=== PATIENT | male | born 1965 | race Two or more races ===

== ENCOUNTER 2016-11-16 11:23 | Inpatient (IN) | payer SELFPAY ==
[~2016-11-16] VITALS: Ht 162.6 cm; Wt 58.1 kg
[2016-11-16] MEDS ORDERED: SODIUM CHLORIDE 0.9% 1,000 ML IV ONE (14:51)
[2016-11-16] MEDS ORDERED: SODIUM CHLORIDE FLUSH 10ML SYR IVF ONE (15:00)
[2016-11-16] MEDS ORDERED: SODIUM CHLORIDE 0.9% 1,000ML IVBOLUS ONE (15:00)
[2016-11-16] MEDS ORDERED: FAMOTIDINE 20 MG/2 ML ONE ×2 (15:18→16:05)
[2016-11-16 15:28] LABS: BLOOD UREA NITROGEN 95 mg/dL (7-18)
[2016-11-16] MEDS ORDERED: FAMOTIDINE 20 MG/2 ML IVPush ONE (15:30)
[2016-11-16 15:31] LABS: ASPARTATE AMINO TRANSFERASE 21 U/L (15-37); IS PT STATUS REG ER OR PRE ER? YES
[2016-11-16] MEDS ORDERED: AZITHROMYCIN 500 MG in SODIUM CHLORIDE 0.9% 250 ML IV ONE (16:30)
[2016-11-16] MEDS ORDERED: CEFTRIAXONE PMX 1GM/50ML 50 ML IVPB ONE (16:30)
[2016-11-16] MEDS ORDERED: CEFTRIAXONE PMX 1GM/50ML 50 ML ONE (16:36)
[2016-11-16] MEDS: AZITHROMYCIN 500 MG in SODIUM CHLORIDE 0.9% 250 ML IV SCH (18:48)
[2016-11-16] MEDS ORDERED: BISACODYL 10 MG SUPP PR PRN (19:00)
[2016-11-16] MEDS ORDERED: ONDANSETRON 2MG/ML, 2ML IVPush PRN (19:00)
[2016-11-16] MEDS ORDERED: ACETAMINOPHEN 325 MG TABLET PO PRN (19:00)
[2016-11-16] MEDS ORDERED: LABETALOL 5MG/ML, 20ML IVPush PRN (19:00)
[2016-11-16] MEDS ORDERED: hydrALAzine 20 MG/ML, 1ML IVPush PRN (19:00)
[2016-11-16] MEDS ORDERED: POLYETHYLENE GLYCOL 17 GM PACKET PO PRN (19:00)
[2016-11-16] MEDS ORDERED: TEMAZEPAM 15 MG CAPSULE PO PRN (19:00)
[2016-11-16] MEDS ORDERED: morphine SULFATE 10 MG/ML, 1ML IVPush PRN (19:00)
[2016-11-16 19:11] LABS: POTASSIUM,URINE RANDOM 13 mmol/L
[2016-11-16] MEDS: CEFTRIAXONE PMX 1GM/50ML 50 ML IV SCH (19:46)
[2016-11-16] MEDS: SODIUM CHLORIDE 0.9% 1,000 ML IV SCH (19:47)
[2016-11-16] MEDS ORDERED: HEPARIN 5,000 UNITS/ML, 1ML ONE (20:21)
[2016-11-16] MEDS: HEPARIN 5,000 UNITS/ML, 1ML SQ SCH (22:14)
[2016-11-16 22:41] VITALS: BP 124/74
[2016-11-16] MEDS: GUAIFENESIN 200 MG TABLET PO SCH (23:45)
[2016-11-17 02:00] VITALS: BP 115/66
[2016-11-17] MEDS: SODIUM CHLORIDE 0.9% 1,000 ML IV SCH ×2 (02:22→20:33)
[2016-11-17] MEDS: HEPARIN 5,000 UNITS/ML, 1ML SQ SCH ×3 (02:23→23:29)
[2016-11-17 06:05] LABS: ASPARTATE AMINO TRANSFERASE 18 U/L (15-37); BLOOD UREA NITROGEN 83 mg/dL (7-18); TOTAL IRON BINDING CAPACITY 198 mcg/dL (250-450)
[2016-11-17 08:00] VITALS: BP 107/68
[2016-11-17] MEDS: CEFTRIAXONE PMX 1GM/50ML 50 ML IV SCH ×2 (08:31→23:32)
[2016-11-17] MEDS ORDERED: PHARMACY MAY ADJ FOR RENAL FX MC PRN (09:30)
[2016-11-17] MEDS: SENNA/DOCUSATE TABLET PO SCH (10:54)
[2016-11-17] MEDS: GUAIFENESIN 200 MG TABLET PO SCH ×2 (10:54→23:29)
[2016-11-17 12:18] LABS: HIV-1 p24 ANTIGEN Nonreactive (Nonreactive)
[2016-11-17 12:19] LABS: HIV 1/2 Ab/Ag DISCLAIMER *** Please Note ***; HIV-1/2 Ab/Ag COMBO COMMENT *** Comment ***
[2016-11-17 12:20] LABS: HIV 1&2 ANTIBODY SCREEN Preliminary Positive (Nonreactive)
[2016-11-17 13:14] VITALS: BP 104/68
[2016-11-17 14:37] LABS: HIV 1&2 ANTIBODY SCREEN REPEAT Preliminary Positive (Nonreactive); HIV 1/2 Ab/Ag DISCLAIMER *** Please Note ***; HIV-1 p24 ANTIGEN REPEAT Nonreactive (Nonreactive)
[2016-11-17 14:41] LABS: HIV-1/2 Ab/Ag COMBO COM REPEAT *** Comment ***
[2016-11-17 20:31] VITALS: BP 111/73
[2016-11-17] MEDS: AZITHROMYCIN 500 MG in SODIUM CHLORIDE 0.9% 250 ML IV SCH (20:34)
[2016-11-18 02:50] VITALS: BP 114/74
[2016-11-18 05:24] LABS: ASPARTATE AMINO TRANSFERASE 20 U/L (15-37); BLOOD UREA NITROGEN 63 mg/dL (7-18)
[2016-11-18 06:24] LABS: DIFF TOTAL CELLS COUNTED 100 CELL DIFF
[2016-11-18 06:28] LABS: VERIFY COUNTS? YES
[2016-11-18 06:29] LABS: ANISOCYTOSIS 1+; HYPOCHROMIA 1+; OVALOCYTES 1+
[2016-11-18 07:05] VITALS: BP 118/76
[2016-11-18] MEDS: GUAIFENESIN 200 MG TABLET PO SCH ×2 (07:55→20:47)
[2016-11-18] MEDS: CEFTRIAXONE PMX 1GM/50ML 50 ML IV SCH ×2 (07:55→22:28)
[2016-11-18] MEDS: HEPARIN 5,000 UNITS/ML, 1ML SQ SCH ×2 (07:55→16:23)
[2016-11-18] MEDS: SENNA/DOCUSATE TABLET PO SCH (07:56)
[2016-11-18] MEDS: SODIUM BICARBONATE 650 MG TABLET PO SCH ×2 (12:53→20:47)
[2016-11-18 15:24] VITALS: BP 114/75
[2016-11-18] MEDS: FERROUS SULFATE 325 MG TABLET PO SCH (16:23)
[2016-11-18 20:48] VITALS: BP 120/79
[2016-11-18] MEDS: AZITHROMYCIN 500 MG in SODIUM CHLORIDE 0.9% 250 ML IV SCH (22:29)
[2016-11-19 01:25] VITALS: BP 112/75
[2016-11-19] MEDS: HEPARIN 5,000 UNITS/ML, 1ML SQ SCH ×3 (01:59→17:18)
[2016-11-19 05:58] LABS: BLOOD UREA NITROGEN 41 mg/dL (7-18)
[2016-11-19] MEDS ORDERED: SODIUM CHLORIDE INHALATION 7%, 4 ML NPPB ONE (06:00)
[2016-11-19 06:01] LABS: ASPARTATE AMINO TRANSFERASE 21 U/L (15-37)
[2016-11-19 07:07] LABS: TOXOPLASMA GONDII IGG 16.7 IU/mL (0.0-7.1); TOXOPLASMA GONDII IGM <3.0 AU/mL (0.0-7.9)
[2016-11-19 08:36] VITALS: BP 123/80
[2016-11-19] MEDS: SENNA/DOCUSATE TABLET PO SCH (09:00)
[2016-11-19] MEDS: GUAIFENESIN 200 MG TABLET PO SCH ×3 (10:02→22:28)
[2016-11-19] MEDS: FERROUS SULFATE 325 MG TABLET PO SCH ×2 (10:02→17:18)
[2016-11-19] MEDS: SODIUM BICARBONATE 650 MG TABLET PO SCH ×2 (10:02→22:17)
[2016-11-19] MEDS: CEFTRIAXONE PMX 1GM/50ML 50 ML IV SCH ×2 (11:08→22:18)
[2016-11-19 14:59] VITALS: BP 103/58
[2016-11-19] MEDS: AZITHROMYCIN 500 MG in SODIUM CHLORIDE 0.9% 250 ML IV SCH (18:46)
[2016-11-19 22:06] VITALS: BP 108/61
[2016-11-20] MEDS: HEPARIN 5,000 UNITS/ML, 1ML SQ SCH ×3 (00:30→16:30)
[2016-11-20 02:19] VITALS: BP 129/79
[2016-11-20 05:24] LABS: BLOOD UREA NITROGEN 25 mg/dL (7-18)
[2016-11-20 05:28] LABS: ASPARTATE AMINO TRANSFERASE 20 U/L (15-37)
[2016-11-20 06:32] LABS: DIFF TOTAL CELLS COUNTED 100 CELL DIFF
[2016-11-20 06:37] LABS: VERIFY COUNTS? YES
[2016-11-20 06:38] LABS: ANISOCYTOSIS 1+
[2016-11-20 06:39] LABS: LARGE PLATELETS 1+; OVALOCYTES 1+
[2016-11-20 09:00] VITALS: BP 129/73
[2016-11-20] MEDS: FERROUS SULFATE 325 MG TABLET PO SCH ×2 (10:26→16:37)
[2016-11-20] MEDS: CEFTRIAXONE PMX 1GM/50ML 50 ML IV SCH ×2 (10:26→22:33)
[2016-11-20] MEDS: GUAIFENESIN 200 MG TABLET PO SCH ×2 (10:26→22:33)
[2016-11-20] MEDS: SENNA/DOCUSATE TABLET PO SCH (10:26)
[2016-11-20 14:33] VITALS: BP 101/65
[2016-11-20] MEDS: AZITHROMYCIN 500 MG in SODIUM CHLORIDE 0.9% 250 ML IV SCH (18:39)
[2016-11-20 22:35] VITALS: BP 111/74
[2016-11-21] MEDS: HEPARIN 5,000 UNITS/ML, 1ML SQ SCH ×3 (02:24→17:50)
[2016-11-21 02:25] VITALS: BP 105/66
[2016-11-21] MEDS: OXYcodone IR 5MG TABLET PO PRN (03:48)
[2016-11-21 05:13] LABS: BLOOD UREA NITROGEN 20 mg/dL (7-18)
[2016-11-21 05:17] LABS: ASPARTATE AMINO TRANSFERASE 28 U/L (15-37)
[2016-11-21 08:40] VITALS: BP 102/67
[2016-11-21] MEDS: FERROUS SULFATE 325 MG TABLET PO SCH ×2 (08:50→17:49)
[2016-11-21] MEDS: GUAIFENESIN 200 MG TABLET PO SCH ×2 (08:51→20:04)
[2016-11-21] MEDS: CEFTRIAXONE PMX 1GM/50ML 50 ML IV SCH ×2 (08:51→20:03)
[2016-11-21] MEDS: SENNA/DOCUSATE TABLET PO SCH (08:56)
[2016-11-21 12:22] VITALS: BP 130/86
[2016-11-21 15:18] LABS: ABSOLUTE CD 4 HELPER 55 /uL (359-1519); HEMATOCRIT 24.8 % (37.5-51.0); HEMOGLOBIN 7.6 g/dL (12.6-17.7); IMMATURE GRANULOCYTES 1 % (.); MCH 26.8 pg (26.6-33.0); MCHC 30.6 g/dL (31.5-35.7); MCV 87 fL (79-97); MONOCYTES 13 % (.); NEUTROPHILS 60 % (.); PLATELETS 260 x10E3/uL (150-379); RBC 2.84 x10E6/uL (4.14-5.80); RDW 17.2 % (12.3-15.4); WBC 2.7 x10E3/uL (3.4-10.8)
[2016-11-21 19:16] VITALS: BP 131/85
[2016-11-22 01:04] VITALS: BP 97/63
[2016-11-22] MEDS: HEPARIN 5,000 UNITS/ML, 1ML SQ SCH ×3 (05:08→22:06)
[2016-11-22 07:47] VITALS: BP 98/70
[2016-11-22] MEDS: SENNA/DOCUSATE TABLET PO SCH (09:00)
[2016-11-22 09:06] LABS: LOG10 HIV-1 RNA 6.029 (.)
[2016-11-22 09:20] LABS: BLOOD UREA NITROGEN 17 mg/dL (7-18)
[2016-11-22 09:23] LABS: ASPARTATE AMINO TRANSFERASE 39 U/L (15-37)
[2016-11-22] MEDS: CEFTRIAXONE PMX 1GM/50ML 50 ML IV SCH (09:23)
[2016-11-22] MEDS: CHOLECALCIFEROL 1,000 UNIT TABLET PO SCH (10:10)
[2016-11-22] MEDS: GUAIFENESIN 200 MG TABLET PO SCH ×2 (10:10→22:06)
[2016-11-22] MEDS: FERROUS SULFATE 325 MG TABLET PO SCH ×2 (10:10→18:21)
[2016-11-22] MEDS: SULFAMETH./TRIMETHOPRIM DS 800MG/160MG TABLET PO SCH (10:11)
[2016-11-22] MEDS: FLUCONAZOLE 200 MG TABLET PO SCH (10:11)
[2016-11-22] MEDS: CEFTAZIDIME PMX 2 GM/50ML 50 ML IV SCH ×2 (10:11→22:06)
[2016-11-22] MEDS: OXYcodone IR 5MG TABLET PO PRN (12:02)
[2016-11-22 13:52] VITALS: BP 108/71
[2016-11-22] MEDS ORDERED: AZIT250T89 PO (17:54)
[2016-11-22] MEDS ORDERED: SULF1TAB3 PO (17:54)
[2016-11-22 18:34] VITALS: BP 130/86
[2016-11-23 04:52] VITALS: BP 127/61
[2016-11-23 05:45] LABS: ASPARTATE AMINO TRANSFERASE 32 U/L (15-37); BLOOD UREA NITROGEN 16 mg/dL (7-18)
[2016-11-23] MEDS: HEPARIN 5,000 UNITS/ML, 1ML SQ SCH ×3 (05:56→22:12)
[2016-11-23 08:00] VITALS: BP 117/84
[2016-11-23] MEDS: FERROUS SULFATE 325 MG TABLET PO SCH ×2 (08:42→16:49)
[2016-11-23] MEDS: FLUCONAZOLE 200 MG TABLET PO SCH (08:43)
[2016-11-23] MEDS: SULFAMETH./TRIMETHOPRIM DS 800MG/160MG TABLET PO SCH (08:43)
[2016-11-23] MEDS: CHOLECALCIFEROL 1,000 UNIT TABLET PO SCH (08:43)
[2016-11-23] MEDS: SENNA/DOCUSATE TABLET PO SCH (08:43)
[2016-11-23] MEDS: GUAIFENESIN 200 MG TABLET PO SCH ×2 (08:43→22:12)
[2016-11-23] MEDS: OXYcodone IR 5MG TABLET PO PRN (08:50)
[2016-11-23] MEDS: CEFTAZIDIME PMX 2 GM/50ML 50 ML IV SCH ×2 (10:13→22:12)
[2016-11-23 13:56] VITALS: BP 114/77
[2016-11-23 14:10] VITALS: BP 103/67
[2016-11-23 19:17] VITALS: BP 121/78
[2016-11-24 01:40] VITALS: BP 118/77
[2016-11-24] MEDS: HEPARIN 5,000 UNITS/ML, 1ML SQ SCH ×2 (06:33→16:21)
[2016-11-24 07:24] VITALS: BP 91/53
[2016-11-24] MEDS: CHOLECALCIFEROL 1,000 UNIT TABLET PO SCH (08:56)
[2016-11-24] MEDS: FERROUS SULFATE 325 MG TABLET PO SCH ×2 (08:57→16:20)
[2016-11-24] MEDS: SENNA/DOCUSATE TABLET PO SCH (08:57)
[2016-11-24] MEDS: SULFAMETH./TRIMETHOPRIM DS 800MG/160MG TABLET PO SCH (08:57)
[2016-11-24] MEDS: GUAIFENESIN 200 MG TABLET PO SCH ×2 (08:57→21:59)
[2016-11-24] MEDS: CEFTAZIDIME PMX 2 GM/50ML 50 ML IV SCH ×2 (10:12→21:59)
[2016-11-24 12:06] LABS: HEPATITIS B SURFACE AG SCREEN Negative (Negative); HEPATITIS Be AG Negative (Negative); HEPATITIS C VIRUS AB 0.1 s/co ratio (0.0-0.9)
[2016-11-24 12:15] VITALS: BP 106/75
[2016-11-24 19:47] VITALS: BP 117/78
[2016-11-25 02:29] VITALS: BP 100/65
[2016-11-25] MEDS: HEPARIN 5,000 UNITS/ML, 1ML SQ SCH ×2 (02:30→10:04)
[2016-11-25 04:06] LABS: G-6-PD QUANT 317 (146-376); RBC 2.88 x10E6/uL (4.14-5.80)
[2016-11-25 08:58] VITALS: BP 109/77
[2016-11-25] MEDS: SENNA/DOCUSATE TABLET PO SCH (10:01)
[2016-11-25] MEDS: CEFTAZIDIME PMX 2 GM/50ML 50 ML IV SCH (10:01)
[2016-11-25] MEDS: FERROUS SULFATE 325 MG TABLET PO SCH (10:02)
[2016-11-25] MEDS: CHOLECALCIFEROL 1,000 UNIT TABLET PO SCH (10:02)
[2016-11-25] MEDS: SULFAMETH./TRIMETHOPRIM DS 800MG/160MG TABLET PO SCH (10:02)
[2016-11-25] MEDS: GUAIFENESIN 200 MG TABLET PO SCH (10:02)
[2016-11-25] MEDS ORDERED: SULF1TAB24 PO (10:48)
[2016-11-25] MEDS ORDERED: LEVO750T6 PO (11:48)
[2016-11-25] MEDS ORDERED: AZIT600T2 PO (11:49)
== END 2016-11-25 13:35 | disposition home or self-care (01) | DRG 193 ==
LOC: ED 17:22 → EDIP 17:23 → ED 17:35 → 4EST 22:25 → 4WST 11-17 05:41 → 5SO 11-17 05:57 → 4WST 11-18 22:13
PROVIDERS: ADMIT Internal Medicine; ATTEND Internal Medicine
DX: J18.9 Pneumonia, unspecified organism (principal); N17.0 Acute kidney failure with tubular necrosis; E87.2 Acidosis; E44.0 Moderate protein-calorie malnutrition; B15.9 Hepatitis A without hepatic coma; D63.1 Anemia in chronic kidney disease; D50.9 Iron deficiency anemia, unspecified; Z68.22 Body mass index [BMI] 22.0-22.9, adult
CPT/HCPCS: 36415; 70450; 71010; 71250; 74022; 76770; 80053; 80061; 80329; 81001; 81374; 82306; 82436; 82550; 82570; 82728; 82955; 83036; 83540; 83550; 83605; 83615; 83735; 83880; 83970; 84100; 84133; 84156; 84300; 84439; 84443; 84484; 84550; 85025; 85041; 86361; 86480; 86701; 86702; 86703; 86704; 86705; 86706; 86707; 86708; 86709; 86777; 86803; 87015; 87040; 87070; 87077; 87086; 87116; 87186; 87205; 87206; 87281; 87340; 87350; 87536; 87899; 87903; 87904; 93005; 96365; 96367; 96375; J0456; J0696; J1644; G0435; G0480; J0713; J7030; J7050; S0028